=== PATIENT | male | born 1945 | race Caucasian/White ===

== ENCOUNTER 2017-06-26 13:29 | Observation (INO) | payer OTHER ==
[~2017-06-26] VITALS: Ht 177.8 cm; Wt 78.9 kg
--- NOTE | ~2017-06-26 | 2DMMODE ---
[facility] [address] [place] [address] 2 D/M-MODE ECHOCARDIOGRAM Name: GOVIND PERALTA RANJAN Room #: 429-P ADM IN M.R.#: [id number] Admission: 06/26/17 Attend Phys: Hammad Garcia Discharge: Date of : 41 Date of Service: 06/27/17 1443 Report #: [id number] THIS REPORT FOR: //name// APPROVED REPORT Study performed: 06/27/2017 13:51:42 EXAM: Comprehensive 2D, Doppler, and color-flow Echocardiogram Patient Location: Bedside Room #: 429 Status: routine BSA: 1.97 BP: 121/80 mmHg Other Information Study Quality: Good Indications CVA/TIA Hypertension/HDD Echo Enhancing Agent Indication: Rule out Shunt Agent(s) / Amount(s) Used: Agitated Saline 6 cc 2D Dimensions RVDd: 28.32 mm LVEF(%): 64.89 (>50%) IVSd: 15.26 (7-11mm) LVOT Diam: 19.66 (18-24mm) LVDd: 48.19 mm PWd: 15.66 (7-11mm) LVDs: 31.06 (25-40mm) Aortic Root: 34.63 mm IVC: 22.00 mm Santillan's LVEF: 64.89 % Volumes Left Atrial Volume (Systole) Single Plane 4CH: 42.72 mL Single Plane 2CH: 33.56 mL LA ESV Index: 22.00 mL/m2 Aortic Valve AoV Peak Faisal.: 1.75 m/s AO Peak Gr.: 12.24 mmHg LVOT Max P.81 mmHg LVOT Max V: 1.40 m/s CHITRA Vmax: 2.42 cm2 [facility] [place] [address] 2 D/M-MODE ECHOCARDIOGRAM Name: GOVIND PERALTA Room #: 429-P [facility] IN .R.#: [id number] Admission: 06/26/17 Attend Phys: Hammad Garcia Discharge: Date of : 41 Date of Service: 06/27/17 1443 Report #: [id number] Mitral Valve E/A Ratio: 0.7 MV Decel. Time: 244.41 ms MV E Max Faisal.: 0.81 m/s MV A Faisal.: 1.14 m/s MV PHT: 70.88 ms IVRT: 96.89 ms Pulmonary Valve PV Peak Faisal.: 0.98 m/s PV Peak Gr.: 3.86 mmHg Pulmonary Vein P Vein S: 0.83 m/s P Vein A: 0.31 m/s P Vein D: 0.42 m/s P Vein A Dur.: 121.1 msec P Vein S/D Ratio: 1.98 Tricuspid Valve TR Peak Faisal.: 2.40 m/s RAP Estimate: 10.00 mmHg TR Peak Gr.: 23.13 mmHg PA Pressure: 33.00 mmHg Left Ventricle The left ventricle is normal size. Mild concentric left ventricular hypertrophy. The left ventricular systolic function is normal. The left ventricular ejection fraction is within the normal range. LVEF is 60%. Mild diastolic dysfunction is present (impaired relaxation pattern). Right Ventricle The right ventricle is normal size. The right ventricular systolic function is normal. Atria The left atrium size is normal. Injection of bubbles documented no interatrial shunt. The right atrium size is normal. Aortic Valve Aortic valve is thickened but has adequate excursion. Trace to mild aortic regurgitation. There is no aortic valvular stenosis. Mitral Valve Mild mitral annular calcification. Trace mitral regurgitation. No evidence of mitral valve stenosis. Tricuspid Valve [address] [address] 2 D/M-MODE ECHOCARDIOGRAM Name: KATHRYNGOVIND WOODRUFF Room #: 429-P [facility] IN ..#: [id number] Admission: 06/26/17 Attend Phys: Hammad Garcia Discharge: Date of : 41 Date of Service: 06/27/17 1443 Report #: [id number] The tricuspid valve is normal in structure. Mild tricuspid regurgitation. PAP is estimated at 33 mmHg. Pulmonic Valve Pulmonic valve is not well visualized. There is no pulmonic valvular regurgitation. Great Vessels The aortic root is normal in size. IVC is upper limits of normal in size and collapses <50% with inspiration. Pericardium There is no pericardial effusion. <Conclusion> The left ventricle is normal size. Mild concentric left ventricular hypertrophy. The left ventricular systolic function is normal. Mild diastolic dysfunction is present (impaired relaxation pattern). The right ventricle is normal size. The left atrium size is normal. Injection of bubbles documented no interatrial shunt. Aortic valve is thickened but has adequate excursion. Mild mitral annular calcification. Trace mitral regurgitation. Mild tricuspid regurgitation. PAP is estimated at 33 mmHg. <ELECTRONICALLY SIGNED> By: Janak Garcia MD 06/27/17 1443 1443 1443 Janak Garcia MD /INF
--- NOTE | ~2017-06-26 | HC ---
[facility] [place] [address] CONSULTATION Name: GOVIND PERALTA Room #: 429-P [facility] IN M.R.#: [id number] Admission: 06/26/17 Attend Phys: Hammad Bowman Discharge: 06/27/17 Date of : 41 Report #: [id number] THIS REPORT FOR: //name// CC: MARTIN physician/PCP Hammad Bowman DATE OF SERVICE: 06/26/2017 HISTORY OF PRESENT ILLNESS: This is a 71-year-old male patient who was evaluated by me for an episode of confusion yesterday. The records were reviewed and the patient provided the history. He does not remember anything about this event. He was driving with his 19-year-old grandson. Grandson noticed that he was repeating himself and was not have any memory formation. His speech was intact. He had no focal deficit associated with it. The episode lasted several hours and during that time, he was very scared because he has a severe memory problems. He never had this episode before. He was taking some pain medication for a removal of the basal cell carcinoma. He also drinks alcohol and he has stopped drinking that alcohol because of the surgery, but he typically drinks only about 2 beers every night. REVIEW OF SYSTEMS: Indicates that this patient never had this episode before. He does have hypertension and the blood pressure is usually well controlled. When he came in, his blood pressure was high, but it is pretty back to normal. He is not a known diabetic and apparently his blood sugar was 76. He is pretty active and had a recent basal carcinoma resection. Otherwise, he is not complaining of any new eye, ENT, cardiac, respiratory, GI, , musculoskeletal, constitutional, dermatological, hematological, psychiatric, throat, allergic or endocrine symptom associated with present symptomatology. PAST MEDICAL HISTORY: Negative for this kind of episode. FAMILY HISTORY: Negative for any seizures. SOCIAL HISTORY: He drinks about 2 beers every night. PHYSICAL EXAMINATION: The patient's examinations indicate he is alert and responsive. He is oriented. He knows what month it is. He knows what hospital he is in and he is able to name the president. His speech, concentration, fund of knowledge and memory is still not back to his baseline, but is much better than last night. Cranial nerve examination 2-12 is unremarkable. This patient has symmetrical strength, sensation, reflexes and tones in all 4 extremities. There is no cerebellar sign or meningeal sign. There is no papilledema. He has no carotid bruit and there is no thyroid mass. His pulses are palpable. He has no edema, cyanosis, or jaundice. He is a well-developed individual who does not have any dysmorphic features of eyes, ears and face. His vision and hearing looks adequate. His cardiac examination shows normal heart sounds and no murmur [address] [address] CONSULTATION Name: GOVIND PERALTA Room #: 429-P [facility] IN M.R.#: [id number] Admission: 06/26/17 Attend Phys: Hammad Bowman Discharge: 06/27/17 Date of : 41 Report #: [id number] or arrhythmia. No respiratory difficulty or rhonchi was noticed. Vital signs indicate that his blood pressure this morning is 112/80, it was high earlier; his temperature is 98.1; his pulse is 68 and his respiration rate is 18. LABORATORY DATA: Indicated a normal white count at 6.2. He has a very good HDL. His TSH and vitamin B12 is normal. His imaging study indicate the carotid Doppler was mostly unremarkable. His CT scan was reviewed and that was unremarkable. IMPRESSION: The patient's clinical presentation is consistent with transient global amnesia. He did have some hypertension when he came in and I suspect that was probably because of his anxiety. However, the chances of this being atypical seizure or transient ischemic attack need to be excluded. He is scheduled for MRI of the brain and MRA of the head and we will see what it shows, I will also get an echocardiogram and EEG done. RECOMMENDATION: I discussed with him the diagnosis and the fact that the diagnosis is presumptive. I discussed with him the workup, which can be done and he is agreeable with that. If workup is unremarkable and if he continues to be back to his baseline, he can be dismissed this evening, he should also stay with family until he feels fully back to normal. I think he can continue on aspirin daily because there is slight disease in his carotid system. He should limit his alcohol use and be careful with the psychotropic medication. All of it was discussed with the patient and the family in detail and they understand that. Thank you very much for this referral and if you have any question, please feel free to contact me. As mentioned above, if his tests are normal and if he is completely back to normal from neurological perspective, he can be dismissed later on today. <ELECTRONICALLY SIGNED> By: Kennedy Villatoro MD 06/27/17 1815 0836 [id number] Kennedy Villatoro MD /nt
--- NOTE | ~2017-06-26 | EKG ---
[place] [address] [facility] [place] [address] ELECTROCARDIOGRAM REPORT Name: KATHRYNGOVIND Room #: 170-5 ADM IN M.R.#: [id number] Admission: 06/26/17 Attend Phys: Hammad Bowman Discharge: Date of : 41 Report #: [id number] THIS REPORT FOR: //name// [facility] ED Test Date: 2017-06-26 Test Time: 13:54:31 Pat Name: GOVIND PERALTA Department: Room: 170 Gender: M [employer]: Iban DUMONT : 1945 Requested By: Marylou Antony Order Number: [id number] MD: Jay Robles Measurements Intervals [place] Rate: 93 P: 5 UT: 175 QRS: -16 QRSD: 93 T: 50 QT: 346 QTc: 431 Interpretive Statements Sinus rhythm Probable left atrial enlargement Abnormal R-wave progression, late transition Inferior infarct, old No previous ECG available for comparison Electronically Signed On 06-26-2017 15:56:08 [employer] by Jay Robles [email or web address] <ELECTRONICALLY SIGNED> By: Jay Robles MD 06/26/17 1556 1354 [id number] Jay Robles MD /NAGI
[2017-06-26 14:12] LABS: ABSOLUTE NEUTROPHILS 4.7 thou/uL (1.4-8.2); BASOPHILS 0.3 % (0.0-2.0); EOSINOPHILS 0.5 % (0.0-3.0); HEMATOCRIT 42.4 % (42.0-52.0); HEMOGLOBIN 14.5 gm/dL (14.0-18.0); MCH 31.5 pg (26.0-34.0); MCHC 34.1 g/dL (28.0-37.0); MCV 92.4 fL (80.0-100.0); MONOCYTES 5.8 % (1.0-8.0); PLATELET COUNT 190 thou/uL (150-400); POLYS 76.4 % (36.0-66.0); RBC 4.58 mil/uL (4.50-6.00); WBC 6.2 thou/uL (4.0-11.0)
[2017-06-26 14:20] LABS: CALCIUM 9.6 mg/dL (8.5-10.1); CREATININE 1.2 mg/dL (0.7-1.3); POTASSIUM 3.5 mmol/L (3.5-5.1)
[2017-06-26 14:20] LABS: URINE BILIRUBIN NEGATIVE (Negative); URINE BLOOD NEGATIVE (Negative); URINE CLARITY CLEAR; URINE GLUCOSE-RANDOM* NEGATIVE (Negative); URINE KETONES NEGATIVE (Negative); URINE LEUKOCYTES NEGATIVE (Negative); URINE NITRITE NEGATIVE (Negative); URINE PROTEIN (DIPSTICK) NEGATIVE (Negative); URINE UROBILINOGEN 0.2 E.U./dl (0.2-1.0)
[2017-06-26 14:22] LABS: URINE COLOR STRAW
[2017-06-26 14:28] LABS: INR 1.1; PROTIME 11.1 Seconds (9.3-11.4)
[2017-06-26 14:28] LABS: AMP/METHAMP Negative (Negative); BARBITURATES Negative (Negative); BENZODIAZEPINES Negative (Negative); COCAINE Negative (Negative); METHADONE Negative (Negative); OPIATES Negative (Negative); PCP Negative (Negative)
[2017-06-26] MEDS ORDERED: LISINOPRIL-HCT1 EAC1 PO (14:44)
[2017-06-26] MEDS ORDERED: CENTRUM SILVER1 EAC4 PO (14:45)
[2017-06-26] MEDS ORDERED: VITAMIN B-12500 MCG PO (14:45)
[2017-06-26] MEDS ORDERED: TUMS PO (14:46)
[2017-06-26] MEDS ORDERED: ASPIRIN81 M2 PO (14:46)
[2017-06-26 15:26] LABS: CHOLESTEROL 184 mg/dL (<200); HDL CHOLESTEROL 77 mg/dL (>40); LDL CHOLESTEROL 87 mg/dL (<100); TC:HDL 2.4 Ratio (Not establshd); TRIGLYCERIDE 104 mg/dL (<150); VLDL 21 mg/dL (<40)
[2017-06-26 15:51] LABS: TSH 0.778 uIU/mL (0.358-3.740)
[2017-06-26 16:21] VITALS: BP 165/53
[2017-06-26 17:12] VITALS: BP 130/87
[2017-06-26 17:34] VITALS: BP 156/103
[2017-06-26 20:00] VITALS: BP 156/80
[2017-06-26 21:30] VITALS: BP 123/77
[2017-06-27 04:30] VITALS: BP 112/80
[2017-06-27] MEDS ORDERED: APAP650 PO (06:05)
[2017-06-27 08:30] VITALS: BP 121/80
[2017-06-27 11:09] LABS: GLYCOHEMOGLOBIN (HGB A1C) 5.1 % (4.8-5.6)
[2017-06-27 16:30] VITALS: BP 136/83
[2017-06-27] MEDS ORDERED: DOXYCYCLINE HYC50 MG PO (16:31)
[2017-06-27] MEDS ORDERED: AMLODIPINE BESY10 MG PO (16:32)
[2017-06-27 16:53] VITALS: BP 136/83
== END 2017-06-27 17:49 | disposition home or self-care (01) ==
LOC: ER 13:29 → EROBS 14:49 → 4E 14:49
PROVIDERS: Emergency Medicine; Hospitalist; Physician Assistant
DX: G45.9 Transient cerebral ischemic attack, unspecified (principal); I16.0 Hypertensive urgency; G45.4 Transient global amnesia; Z85.828 Personal history of other malignant neoplasm of skin; Z87.891 Personal history of nicotine dependence; Z79.899 Other long term (current) drug therapy; Z79.82 Long term (current) use of aspirin